=== PATIENT | female | born 1940 | race Caucasian/White ===

== ENCOUNTER 2018-08-19 14:18 | Emergency (ER) | payer MEDICARE ==
[~2018-08-19] VITALS: Ht 167.6 cm; Wt 61.2 kg
[2018-08-19] MEDS ORDERED: OMEPRAZOLE20 MG PO (15:23)
[2018-08-19] MEDS ORDERED: SINEMET 25-1001 EACH PO (15:24)
[2018-08-19] MEDS ORDERED: Jantoven2 MG PO (15:24)
[2018-08-19] MEDS ORDERED: METF500 PO (15:24)
[2018-08-19] MEDS ORDERED: TRAM50 PO (15:25)
[2018-08-19] MEDS ORDERED: Lisinopril2.5 MG PO (15:25)
[2018-08-19] MEDS ORDERED: GLUCOSAMINE (15:26)
[2018-08-19] MEDS ORDERED: VITAMIN D35000 UNIT (15:27)
[2018-08-19] MEDS ORDERED: [UNRECOGNIZED DRUG - CODE] PO (15:28)
[2018-08-19] MEDS ORDERED: ACET500 (15:28)
[2018-08-19] MEDS ORDERED: LIDO700A20 TOP (17:19)
== END 2018-08-19 18:23 | disposition home or self-care (01) ==
LOC: ER 14:18 → EDSEX 14:18 → ER 18:23
DX: S00.83XA Contusion of other part of head, initial encounter (principal); M54.2 Cervicalgia; J18.9 Pneumonia, unspecified organism; Z79.899 Other long term (current) drug therapy; Z79.01 Long term (current) use of anticoagulants; Z79.84 Long term (current) use of oral hypoglycemic drugs; Z79.891 Long term (current) use of opiate analgesic; W19.XXXA Unspecified fall, initial encounter
CPT/HCPCS: 70150; 70486; 71046; 72125; 99284-25; A9270

== ENCOUNTER 2018-09-24 12:17 | Emergency (ER) | payer MEDICARE ==
[~2018-09-24] VITALS: Ht 170.2 cm; Wt 63.5 kg
[~2018-09-24 12:17] MED LIST: ACET500; GLUCOSAMINE; Jantoven2 MG PO; LIDO700A20 TOP; Lisinopril2.5 MG PO; METF500 PO; OMEPRAZOLE20 MG PO; SINEMET 25-1001 EACH PO; TRAM50 PO; VITAMIN D35000 UNIT; [UNRECOGNIZED DRUG - CODE] PO
[2018-09-24 13:37] LABS: International Normalized Ratio 2.4; Prothrombin Time Results 23.5 Sec (9.7-11.5)
== END 2018-09-24 14:33 | disposition home or self-care (01) ==
LOC: ER 12:17
PROVIDERS: Physician Assistant
DX: R06.02 Shortness of breath (principal); G20 Parkinson's disease; Z79.01 Long term (current) use of anticoagulants; Z86.718 Personal history of other venous thrombosis and embolism
CPT/HCPCS: 36415; 71046; 85610; 99283-25